=== PATIENT | female | born 1955 | race Caucasian/White ===

== ENCOUNTER → 2023-10-31 08:25 | Outpatient (REF) | payer MEDICARE, BC, SELFPAY | LOC: WDC 08:25 | PROVIDERS: ATTENDING PHYSICIAN Obstetrics & Gynecology Gynecology; FAMILY PHYSICIAN Family Medicine | DX: Z12.31 Encounter for screening mammogram for malignant neoplasm of breast (principal) | CPT/HCPCS: 77063; 77067 ==

== ENCOUNTER → 2024-11-09 13:03 | Outpatient (REF) | payer MEDICARE, BC, SELFPAY | LOC: WDC 13:03 | PROVIDERS: ATTENDING PHYSICIAN Obstetrics & Gynecology Gynecology; FAMILY PHYSICIAN Family Medicine | DX: Z12.31 Encounter for screening mammogram for malignant neoplasm of breast (principal) | CPT/HCPCS: 77063; 77067 ==

== ENCOUNTER → 2024-12-01 08:34 | Outpatient (REF) | payer MEDICARE, BC, SELFPAY ==
[2024-12-01 11:22] LABS: ALT (SGPT) 29 U/L (0-35); AST (SGOT) 36 U/L (14-36); Albumin 5.0 g/dl (3.5-5.0); Alkaline Phosphatase 65 U/L (38-126); Blood Urea Nitrogen 16 mg/dl (7-17); Calcium 9.9 mg/dl (8.4-10.2); Carbon Dioxide 29 mmol/L (22-30); Chloride 104 mmol/L (98-107); Glucose 90 mg/dl (70-99); HDL Cholesterol 74 mg/dl; LDL Cholesterol, Calculated 80 mg/dl; Potassium 5.1 mmol/L (3.5-5.1); Sodium 139 mmol/L (135-145); Total Protein 7.3 g/dl (6.3-8.2); Very Low Density Lipoprotein 23 mg/dl (0-30); eGFR > 60.00
== END ==
LOC: REG 08:34
PROVIDERS: ATTENDING PHYSICIAN Family Medicine
DX: E78.00 Pure hypercholesterolemia, unspecified (principal)
CPT/HCPCS: 36415; 80053; 80061

== ENCOUNTER → 2024-12-27 12:32 | Outpatient (REF) | payer MEDICARE, BC, SELFPAY | LOC: HWRAD 12:32 | PROVIDERS: ATTENDING PHYSICIAN Family Medicine | DX: Z78.0 Asymptomatic menopausal state (principal) | CPT/HCPCS: 77080 ==